=== PATIENT | male | born 1945 | race Caucasian/White ===

== ENCOUNTER 2019-03-30 13:31 | Emergency (ER) | payer MEDICARE ==
[~2019-03-30] VITALS: Ht 188 cm; Wt 111.6 kg
[2019-03-30 14:40] LABS: BASOPHILS % (AUTO) 0.8 % (0-1); EOSINOPHILS # (AUTO) 0.1 X10'3 (0-0.9); EOSINOPHILS % (AUTO) 2.2 % (0-6); HEMATOCRIT 34.5 % (42.0-52.0); HEMOGLOBIN 11.4 g/dl (14.0-17.9); LYMPHOCYTES # (AUTO) 0.9 X10'3 (1.1-4.8); LYMPHOCYTES % (AUTO) 18.6 % (21-51); MEAN CORPUSCULAR VOLUME 90.9 FL (78-98); MEAN PLATELET VOLUME 6.7 FL (7.4-10.4); MONOCYTES # (AUTO) 0.6 X10'3 (0-0.9); MONOCYTES % (AUTO) 11.7 % (2-12); NEUTROPHILS # (AUTO) 3.4 X10'3 (1.8-7.7); NEUTROPHILS % (AUTO) 66.7 % (42-75); PLATELET COUNT 201 X10'3 (140-440); RED CELL DISTRIBUTION WIDTH 14.7 % (11.5-14.5); WHITE BLOOD COUNT 5.1 X10'3 (4.5-11.0)
[2019-03-30 14:55] LABS: ALANINE AMINOTRANSFERASE 32 U/L (12-78); ALBUMIN 4.1 G/DL (3.4-5.0); ALBUMIN/GLOBULIN RATIO 1.1 (1.1-1.5); ALKALINE PHOSPHATASE 69 IU/L (46-116); ANION GAP 9 (8-16); ASPARTATE AMINO TRANSFERASE 26 U/L (10-37); BILIRUBIN,TOTAL 0.5 MG/DL (0.1-1.0); BLOOD UREA NITROGEN 20 MG/DL (7-18); CHLORIDE 106 MMOL/L (99-107); GLUCOSE 81 MG/DL (70-104); POTASSIUM 4.2 MMOL/L (3.5-5.1); SODIUM 141 MMOL/L (135-145); TOTAL PROTEIN 7.8 G/DL (6.4-8.2); eGFR 73 ML/MIN
[2019-03-30] MEDS ORDERED: ISOS60TA4 PO (16:25)
--- NOTE | 2019-03-30 16:39 | NUR ---
RELIEVING RN FOR BREAK, PT IS RESTING QUIETLY ON GURNEY, RESP EVEN AND UNLABORED
[2019-03-30 17:35] VITALS: BP 148/67
== END 2019-03-30 17:37 | disposition home or self-care (01) ==
LOC: ER 13:32
DX: R07.89 Other chest pain (principal); I25.10 Atherosclerotic heart disease of native coronary artery without angina pectoris; G89.29 Other chronic pain; Z98.890 Other specified postprocedural states; Z95.5 Presence of coronary angioplasty implant and graft; Z88.1 Allergy status to other antibiotic agents; Z79.899 Other long term (current) drug therapy
CPT/HCPCS: 36415; 71045; 80053; 84484; 85025; 93005; 99284

== ENCOUNTER 2019-06-11 10:27 | Day surgery (SDC) | payer MEDICARE, BC ==
[~2019-06-11] VITALS: Ht 188 cm; Wt 112.2 kg
[2019-06-11] VITALS (9 sets, daily range): BP systolic 119–156; BP diastolic 71–92
[2019-06-11] MEDS ORDERED: normal saline 1,000 ML IV SCH (10:50)
[2019-06-11] MEDS ORDERED: diphenhydrAMINE 25mg capsule PO PRN (10:50)
[2019-06-11] MEDS ORDERED: AMLO10TA4 PO (11:37)
[2019-06-11] MEDS ORDERED: METF-436 PO (11:37)
[2019-06-11] MEDS ORDERED: NAPR220T67 PO (11:37)
[2019-06-11] MEDS ORDERED: ATOR40TA PO (11:37)
[2019-06-11] MEDS ORDERED: FLEC100T2 PO (11:37)
[2019-06-11] MEDS ORDERED: FLO0.4C PO (11:37)
[2019-06-11] MEDS ORDERED: ISOS60TA4 PO (11:37)
[2019-06-11] MEDS ORDERED: ASPI81TA52 PO (11:37)
[2019-06-11] MEDS ORDERED: PANT-47 PO (11:37)
[2019-06-11 11:47] LABS: ALBUMIN 4.2 G/DL (3.4-5.0); ANION GAP 7 (8-16); BLOOD UREA NITROGEN 20 MG/DL (7-18); BUN/CREATININE RATIO 19.2 (5.4-32.0); CALCIUM 8.9 MG/DL (8.5-10.1); CHLORIDE 108 MMOL/L (99-107); CREATININE 1.04 MG/DL (0.60-1.10); GLUCOSE 106 MG/DL (70-104); MAGNESIUM 2.1 MG/DL (1.5-2.4); POTASSIUM 4.3 MMOL/L (3.5-5.1); SODIUM 141 MMOL/L (135-145); TOTAL CARBON DIOXIDE 26.5 MMOL/L (24-32); eGFR 70 ML/MIN
[2019-06-11 11:49] LABS: BASOPHILS % (AUTO) 0.8 % (0-1); EOSINOPHILS # (AUTO) 0.1 X10'3 (0-0.9); EOSINOPHILS % (AUTO) 1.8 % (0-6); HEMATOCRIT 33.8 % (42.0-52.0); LYMPHOCYTES # (AUTO) 0.8 X10'3 (1.1-4.8); LYMPHOCYTES % (AUTO) 13.4 % (21-51); MEAN CORPUSCULAR HEMOGLOBIN 27.6 PG (27.0-31.0); MEAN CORPUSCULAR HGB CONC 32.5 g/dL (33.0-36.5); MEAN CORPUSCULAR VOLUME 84.8 FL (78-98); MEAN PLATELET VOLUME 7.1 FL (7.4-10.4); MONOCYTES # (AUTO) 0.5 X10'3 (0-0.9); MONOCYTES % (AUTO) 8.8 % (2-12); NEUTROPHILS # (AUTO) 4.2 X10'3 (1.8-7.7); NEUTROPHILS % (AUTO) 75.2 % (42-75); PLATELET COUNT 200 X10'3 (140-440); RED BLOOD COUNT 3.98 X10'6 (4.70-6.10); RED CELL DISTRIBUTION WIDTH 15.8 % (11.5-14.5); WHITE BLOOD COUNT 5.6 X10'3 (4.5-11.0)
[2019-06-11] MEDS ORDERED: FLU VACC QS 2019-20 (6 MOS UP) 60 MCG/0.5 ML VIAL IMVAC ONE (12:35)
[2019-06-11] MEDS ORDERED: midazolam 2 mg/2 ml injection ONE ×2 (12:56→13:29)
[2019-06-11] MEDS ORDERED: fentaNYL/PF 50MCG/1 ML 2ML syringe ONE (12:56)
[2019-06-11] MEDS ORDERED: heparin 1,000 UNITS/NS 500ml 500 ML ONE (12:56)
[2019-06-11] MEDS ORDERED: iohexol 350MG/ML 100ml bottle IV ONE ×2 (12:56→14:08)
[2019-06-11] MEDS ORDERED: iohexol 350 MG/ML 50ML vial IV ONE ×2 (12:56→14:31)
[2019-06-11] MEDS ORDERED: LIDOcaine 1% (10mg/ml)w/preservative injection 20ml MDV ONE (12:56)
[2019-06-11] MEDS ORDERED: heparin 1,000unit/ml 10ml vial 10 ML ONE (14:08)
[2019-06-11] MEDS ORDERED: clopidogrel 300mg tablet ONE (14:43)
[2019-06-11] MEDS ORDERED: normal saline 1000ml 1,000 ML IV SCH (15:20)
[2019-06-11] MEDS ORDERED: HYDROcodone/acetaminophen 10/325mg tab PO PRN (15:20)
[2019-06-11] MEDS ORDERED: HYDROcodone/acetaminophen 5mg/325mg tablet PO PRN (15:20)
[2019-06-11] MEDS ORDERED: OXAZEpam 15mg capsule PO PRN (15:20)
[2019-06-11] MEDS ORDERED: ketorolac tromethamine 15mg/ml inj. IV ONE (15:40)
== END 2019-06-11 18:15 | disposition home or self-care (01) ==
LOC: SSTAY O 10:27
PROVIDERS: ATTEND Internal Medicine Cardiovascular Disease
DX: I25.119 Atherosclerotic heart disease of native coronary artery with unspecified angina pectoris (principal); K21.9 Gastro-esophageal reflux disease without esophagitis; I48.0 Paroxysmal atrial fibrillation; I10 Essential (primary) hypertension; E78.2 Mixed hyperlipidemia; G89.29 Other chronic pain; Z95.5 Presence of coronary angioplasty implant and graft; Z98.890 Other specified postprocedural states
CPT/HCPCS: 36415; 80048; 83735; 85025; 85610; 93458; 99152; 99153; C1725; C1769; C1874; C1894; C9600; C9601; J1644; J1885; J2001; J2250; J3010; J7030; Q0163; Q9967; 93005; A4620; A6258; C1760; Q2037

== ENCOUNTER 2020-07-24 13:01 | Outpatient (CLI) | payer SELFPAY ==
[~2020-07-24 13:01] MED LIST: AMLO10TA4 PO; ASPI81TA52 PO; ATOR40TA PO; FLEC100T2 PO; FLO0.4C PO; ISOS60TA71 PO; METF-436 PO; NAPR220T67 PO; PANT-47 PO
== END 2020-07-24 23:59 | disposition home or self-care (01) ==
LOC: HW VAS 13:01
DX: Z13.6 Encounter for screening for cardiovascular disorders (principal)

== ENCOUNTER 2020-12-22 08:17 | Day surgery (SDC) | payer MEDICARE, BC ==
[~2020-12-22] VITALS: Ht 188 cm; Wt 113.2 kg
[2020-12-22] VITALS (9 sets, daily range): BP systolic 109–157; BP diastolic 68–81
[2020-12-22] MEDS ORDERED: diphenhydrAMINE 25mg capsule PO PRN (08:50)
[2020-12-22] MEDS ORDERED: normal saline 1,000 ML IV SCH (08:50)
[2020-12-22] MEDS ORDERED: PANT20TA18 PO (09:33)
[2020-12-22] MEDS ORDERED: ATOR20TA PO (09:33)
[2020-12-22] MEDS ORDERED: CLOP75TA15 PO (09:33)
[2020-12-22] MEDS ORDERED: BISO1TAB PO (09:33)
[2020-12-22] MEDS ORDERED: LACT1CAP65 PO (09:33)
[2020-12-22 09:35] LABS: BASOPHILS % (AUTO) 0.5 % (0-1); EOSINOPHILS # (AUTO) 0.1 X10'3 (0-0.9); EOSINOPHILS % (AUTO) 1.5 % (0-6); HEMATOCRIT 40.1 % (42.0-52.0); HEMOGLOBIN 13.6 g/dl (14.0-17.9); LYMPHOCYTES % (AUTO) 15.8 % (21-51); MEAN CORPUSCULAR HGB CONC 33.8 g/dL (33.0-36.5); MEAN CORPUSCULAR VOLUME 97.5 FL (78-98); MEAN PLATELET VOLUME 7.3 FL (7.4-10.4); MONOCYTES # (AUTO) 0.6 X10'3 (0-0.9); MONOCYTES % (AUTO) 10.1 % (2-12); NEUTROPHILS # (AUTO) 4.6 X10'3 (1.8-7.7); NEUTROPHILS % (AUTO) 72.1 % (42-75); PLATELET COUNT 176 X10'3 (140-440); RED BLOOD COUNT 4.11 X10'6 (4.70-6.10); RED CELL DISTRIBUTION WIDTH 14.3 % (11.5-14.5); WHITE BLOOD COUNT 6.4 X10'3 (4.5-11.0)
[2020-12-22 09:44] LABS: ALBUMIN 4.3 G/DL (3.4-5.0); ANION GAP 11 (8-16); BLOOD UREA NITROGEN 23 MG/DL (7-18); BUN/CREATININE RATIO 20.9 (5.4-32.0); CHLORIDE 109 MMOL/L (99-107); GLUCOSE 126 MG/DL (70-104); MAGNESIUM 2.2 MG/DL (1.5-2.4); POTASSIUM 4.3 MMOL/L (3.5-5.1); SODIUM 145 MMOL/L (135-145); TOTAL CARBON DIOXIDE 25.4 MMOL/L (24-32); eGFR 65 ML/MIN
[2020-12-22] MEDS ORDERED: verapamil 2.5 mg/ml inj IV ONE (10:13)
[2020-12-22] MEDS ORDERED: nitroGLYCERIN-Tridil 50MG/D5W 250 ML IV ONE (10:13)
[2020-12-22] MEDS ORDERED: fentaNYL/PF 50MCG/1 ML 2ML syringe ONE (10:13)
[2020-12-22] MEDS ORDERED: midazolam 1 mg/ML 2ml injection ONE (10:13)
[2020-12-22] MEDS ORDERED: iohexol 350MG/ML 100ml bottle IV ONE (10:14)
[2020-12-22] MEDS ORDERED: LIDOcaine 1% (10mg/ml)w/preservative injection 20ml MDV ONE (10:14)
[2020-12-22] MEDS ORDERED: heparin 1,000unit/ml 10ml vial 10 ML ONE (10:14)
[2020-12-22] MEDS ORDERED: iohexol 350 MG/ML 50ML vial IV ONE (10:14)
[2020-12-22] MEDS ORDERED: nitroGLYCERIN 0.4mg SUBLingual tab SL ONE (11:09)
[2020-12-22] MEDS ORDERED: acetaminophen 325mg tablet PO PRN (11:40)
[2020-12-22] MEDS ORDERED: HYDROcodone/acetaminophen 5mg/325mg tablet PO PRN (11:40)
[2020-12-22] MEDS ORDERED: proCHLORperazine 10 MG/2 ml inj IV PRN (11:40)
[2020-12-22] MEDS ORDERED: HYDROcodone/acetaminophen 10/325mg tab PO PRN (11:40)
[2020-12-22] MEDS ORDERED: nitroGLYCERIN 0.4mg SUBLingual tab SL PRN (11:40)
[2020-12-22] MEDS ORDERED: ondansetron/PF 4mg/2ml inj IV PRN (11:40)
--- NOTE | 2020-12-22 14:33 | NUR ---
Patient was about to leave, Abena VAZQUEZ from preop came in with written orders from Dr. mathew for preop tests to be done in room prior to bypass surgery.
[2020-12-22 15:42] LABS: HEMOGLOBIN A1C 6.3 % (4.5-6.2)
[2020-12-22 16:47] LABS: CLARITY,URINE SLIGHTLY CLOUDY (Clear); COLOR,URINE YELLOW (Yellow); GLUCOSE, URINE NEGATIVE (Neg); KETONES,URINE NEGATIVE (Neg); LEUKOCYTE ESTERASE ,URINE NEGATIVE (Neg); NITRITES, URINE NEGATIVE (Neg); OCCULT BLOOD,URINE NEGATIVE (Neg); PH,URINE 5.5 (4.8-8.0); PROTEIN,URINE NEGATIVE (Neg); UROBILINOGEN,URINE 0.2 E.U/dL (0.2-1.0)
[2020-12-22 16:54] LABS: UA COLLECTION TYPE NON-SPECIFIED
[2020-12-22 16:58] LABS: HYALINE CASTS 0-3 /LPF (NEGATIVE); MUCUS STRANDS FEW /LPF (Neg); SPERM FEW /HPF (NEGATIVE); SQUAMOUS EPITHELIAL CELL,UR FEW /LPF (FEW); TRANSITIONAL EPI CELLS,URINE FEW /HPF
[2020-12-22 16:59] LABS: BACTERIA,URINE NONE SEEN /HPF (Neg); RBC,URINE NONE SEEN /HPF (0-2); WBC,URINE 0-4 /HPF (0-4)
== END 2020-12-22 16:50 | disposition home or self-care (01) ==
LOC: SSTAY O 08:17
PROVIDERS: ATTEND Internal Medicine Cardiovascular Disease
DX: R06.09 Other forms of dyspnea (principal); I25.110 Atherosclerotic heart disease of native coronary artery with unstable angina pectoris; T82.855A Stenosis of coronary artery stent, initial encounter; K21.9 Gastro-esophageal reflux disease without esophagitis; N40.0 Benign prostatic hyperplasia without lower urinary tract symptoms; I48.0 Paroxysmal atrial fibrillation; E78.2 Mixed hyperlipidemia; I10 Essential (primary) hypertension; G89.29 Other chronic pain; Z98.890 Other specified postprocedural states; Z79.01 Long term (current) use of anticoagulants; Z79.899 Other long term (current) drug therapy; Z88.8 Allergy status to other drugs, medicaments and biological substances; Z87.891 Personal history of nicotine dependence; Y83.8 Other surgical procedures as the cause of abnormal reaction of the patient, or of later complication, without mention of misadventure at the time of the procedure; Y92.89 Other specified places as the place of occurrence of the external cause
CPT/HCPCS: 36415; 80048; 81001; 83036; 83735; 85025; 85610; 93005; 93458; 93880; 93971; 99152; C1760; C1894; J1644; J2001; J2250; J3010; J7030; Q0163; Q9967; 99153; A4620; A6258; J3490

== ENCOUNTER 2023-05-22 16:04 | Emergency (ER) | payer MEDICARE ==
[~2023-05-22] VITALS: Ht 188 cm; Wt 107.0 kg
[~2023-05-22 16:04] MED LIST changes: -AMLO10TA4 PO; +ASPI-1265 PO; -ASPI81TA52 PO; -ATOR40TA PO; +ATOR40TA72 PO; +BIFI4CAP PO; +CHOL200052 PO; -FLO0.4C PO; +IBUP-2803 PO; -ISOS60TA71 PO; +MAGN100T6 PO; -METF-436 PO; -NAPR220T67 PO; -PANT-47 PO; +PANT20TA18 PO
[2023-05-22 16:30] LABS: BASOPHILS % (AUTO) 0.3 % (0-1); EOSINOPHILS # (AUTO) 0.1 X10'3 (0-0.9); EOSINOPHILS % (AUTO) 0.8 % (0-6); HEMATOCRIT 40.6 % (42.0-52.0); HEMOGLOBIN 13.6 g/dl (14.0-17.9); LYMPHOCYTES # (AUTO) 0.9 X10'3 (1.1-4.8); LYMPHOCYTES % (AUTO) 7.3 % (21-51); MEAN CORPUSCULAR HEMOGLOBIN 32.6 PG (27.0-31.0); MEAN CORPUSCULAR HGB CONC 33.5 g/dL (33.0-36.5); MEAN CORPUSCULAR VOLUME 97.3 FL (78-98); MEAN PLATELET VOLUME 6.9 FL (7.4-10.4); MONOCYTES # (AUTO) 0.9 X10'3 (0-0.9); NEUTROPHILS # (AUTO) 10.7 X10'3 (1.8-7.7); NEUTROPHILS % (AUTO) 84.6 % (42-75); PLATELET COUNT 147 X10'3 (140-440); RED BLOOD COUNT 4.17 X10'6 (4.70-6.10); RED CELL DISTRIBUTION WIDTH 14.4 % (11.5-14.5); WHITE BLOOD COUNT 12.6 X10'3 (4.5-11.0)
[2023-05-22 16:52] LABS: ALANINE AMINOTRANSFERASE 84 U/L (12-78); ALBUMIN 4.1 G/DL (3.4-5.0); ALBUMIN/GLOBULIN RATIO 1.1 (1.1-1.5); ALKALINE PHOSPHATASE 100 IU/L (46-116); ANION GAP 7 (8-16); ASPARTATE AMINO TRANSFERASE 61 U/L (10-37); BILIRUBIN,TOTAL 0.7 MG/DL (0.1-1.0); BLOOD UREA NITROGEN 21 MG/DL (7-18); BUN/CREATININE RATIO 19.8 (10.0-20.0); CALCIUM 9.6 MG/DL (8.5-10.1); CHLORIDE 103 MMOL/L (99-107); CREATININE 1.06 MG/DL (0.60-1.10); GLUCOSE 146 MG/DL (70-104); POTASSIUM 4.3 MMOL/L (3.5-5.1); PRO BRAIN NATRIURETIC PEPTIDE 126 PG/ML (0-450); SODIUM 139 MMOL/L (135-145); TOTAL CARBON DIOXIDE 28.9 MMOL/L (24-32); TOTAL PROTEIN 7.9 G/DL (6.4-8.2); eCRCL 68 ML/MIN; eGFR 68 ML/MIN
[2023-05-22] MEDS ORDERED: AMOX-115 PO (21:59)
[2023-05-22] MEDS ORDERED: AZIT250T83 PO (21:59)
[2023-05-22] MEDS ORDERED: ondansetron 4mg rapidly disintigrating tab PO ONE (22:00)
[2023-05-22] MEDS ORDERED: azithromycin 250mg tablet PO ONE (22:00)
[2023-05-22] MEDS ORDERED: amox tr/potassium clavulanate 500mg/125mg TAB PO SCH (22:15)
[2023-05-22] MEDS ORDERED: amox tr/potassium clavulanate 500mg/125mg TAB PO ONE (22:15)
[2023-05-22 22:27] VITALS: BP 139/81; PULSE 71; RESP 16; TEMP 98.7; O2SAT 97
[2023-05-23] MEDS ORDERED: amox tr/potassium clavulanate 500mg/125mg TAB PO SCH (08:30)
== END 2023-05-22 22:29 | disposition home or self-care (01) ==
LOC: ER 16:04
DX: J18.9 Pneumonia, unspecified organism (principal); I11.0 Hypertensive heart disease with heart failure; G89.29 Other chronic pain; M54.9 Dorsalgia, unspecified; Z88.1 Allergy status to other antibiotic agents; Z79.899 Other long term (current) drug therapy; Z79.1 Long term (current) use of non-steroidal anti-inflammatories (NSAID); Z79.2 Long term (current) use of antibiotics
CPT/HCPCS: 36415; 71045; 80053; 83880; 84484; 85025; 93005; 99285

== ENCOUNTER 2024-07-13 08:14 | Day surgery (SDC) | payer MEDICARE ==
[2024-07-13] VITALS (9 sets, daily range): BP systolic 145–171; BP diastolic 69–91; PULSE 68–75; RESP 12–16; TEMP 97.8; O2SAT 97–99
[~2024-07-13] VITALS: Ht 188 cm; Wt 104.1 kg
[~2024-07-13 08:14] MED LIST changes: -BIFI4CAP PO; +BIFI4CAP2 PO
[2024-07-13] MEDS: sodium bicarbonate 1meq/ml syr 150 ML in dextrose 5%-water 1,000 ML IV ONE (09:41)
[2024-07-13] MEDS ORDERED: ROSU40TA89 PO (09:42)
[2024-07-13] MEDS: diphenhydrAMINE 25mg capsule PO PRN (09:42)
[2024-07-13] MEDS: normal saline 1,000 ML IV SCH (09:42)
[2024-07-13] MEDS ORDERED: NITR0.3T10 (09:45)
[2024-07-13] MEDS ORDERED: LIDOcaine 1% 30ml preserv. free vial ONE (10:04)
[2024-07-13] MEDS ORDERED: iohexol 350 MG/ML 50ML vial IV ONE (10:04)
[2024-07-13] MEDS ORDERED: heparin 1,000unit/ml 10ml vial 10 ML ONE (10:04)
[2024-07-13] MEDS ORDERED: iohexol 350MG/ML 100ml bottle IV ONE ×3 (10:04→11:36)
[2024-07-13 10:07] LABS: ANION GAP 6 (8-16); CHLORIDE 110 MMOL/L (99-107); GLUCOSE 124 MG/DL (70-104); SODIUM 145 MMOL/L (135-145); TOTAL CARBON DIOXIDE 29.1 MMOL/L (24-32)
[2024-07-13 10:08] LABS: BLOOD UREA NITROGEN 15 MG/DL (7-18); BUN/CREATININE RATIO 19.2 (10.0-20.0); CALCIUM 9.1 MG/DL (8.5-10.1); CREATININE 0.78 MG/DL (0.60-1.10); eCRCL 91 ML/MIN; eGFR > 90 ML/MIN
[2024-07-13 10:09] LABS: BASOPHILS % (AUTO) 0.7 % (0-1); EOSINOPHILS # (AUTO) 0.1 X10'3 (0-0.9); EOSINOPHILS % (AUTO) 2.6 % (0-6); HEMATOCRIT 38.3 % (42.0-52.0); HEMOGLOBIN 12.6 g/dl (14.0-17.9); LYMPHOCYTES # (AUTO) 1.1 X10'3 (1.1-4.8); LYMPHOCYTES % (AUTO) 22.4 % (21-51); MEAN CORPUSCULAR HEMOGLOBIN 31.9 PG (27.0-31.0); MEAN CORPUSCULAR VOLUME 96.6 FL (78-98); MEAN PLATELET VOLUME 7.6 FL (7.4-10.4); MONOCYTES # (AUTO) 0.5 X10'3 (0-0.9); MONOCYTES % (AUTO) 9.6 % (2-12); NEUTROPHILS % (AUTO) 64.7 % (42-75); PLATELET COUNT 136 X10'3 (140-440); RED BLOOD COUNT 3.96 X10'6 (4.70-6.10); RED CELL DISTRIBUTION WIDTH 14.1 % (11.5-14.5); WHITE BLOOD COUNT 4.7 X10'3 (4.5-11.0)
[2024-07-13] MEDS ORDERED: SILD50TA53 PO (10:09)
[2024-07-13] MEDS ORDERED: CHOL500061 PO (10:09)
[2024-07-13] MEDS ORDERED: METF-1203 PO (10:09)
[2024-07-13] MEDS ORDERED: CA C1TAB91 PO (10:09)
[2024-07-13] MEDS ORDERED: RIVA1PAT11 (10:09)
[2024-07-13] MEDS ORDERED: FLUT16SP26 BOTHNARES (10:09)
[2024-07-13] MEDS ORDERED: EZET10TA48 PO (10:11)
[2024-07-13] MEDS ORDERED: CELE-127 PO (10:11)
[2024-07-13 10:32] LABS: INR 1.1 INR; PROTHROMBIN TIME 11.7 SECONDS (9.0-12.0)
[2024-07-13] MEDS ORDERED: midazolam 1 mg/ML 2ml injection ONE ×2 (10:42)
[2024-07-13] MEDS ORDERED: fentaNYL/PF 50MCG/1 ML 2ML syringe ONE (10:43)
[2024-07-13] MEDS ORDERED: nitroGLYCERIN 500mcg/5mL D5W 5 ML IV ONE (11:04)
[2024-07-13] MEDS ORDERED: hydrALAZINE 20mg/ml inj. ONE (11:34)
[2024-07-13] MEDS ORDERED: ticagrelor 90mg tablet ONE (12:12)
[2024-07-13] MEDS ORDERED: ondansetron/PF 4mg/2ml inj IV PRN (12:55)
[2024-07-13] MEDS ORDERED: HYDROcodone/acetaminophen 10/325mg tab PO PRN (12:55)
[2024-07-13] MEDS ORDERED: proCHLORperazine 10 MG/2 ml inj IV PRN (12:55)
[2024-07-13] MEDS ORDERED: HYDROcodone/acetaminophen 5mg/325mg tablet PO PRN (12:55)
[2024-07-13] MEDS ORDERED: TICA90TA2 PO (13:03)
== END 2024-07-13 16:05 | disposition home or self-care (01) ==
LOC: SSTAY O 08:14
PROVIDERS: ATTEND Internal Medicine Cardiovascular Disease
DX: I25.10 Atherosclerotic heart disease of native coronary artery without angina pectoris (principal); K21.9 Gastro-esophageal reflux disease without esophagitis; I10 Essential (primary) hypertension; I48.0 Paroxysmal atrial fibrillation; E78.2 Mixed hyperlipidemia; G31.83 Neurocognitive disorder with Lewy bodies; F02.80 Dementia in other diseases classified elsewhere, unspecified severity, without behavioral disturbance, psychotic disturbance, mood disturbance, and anxiety; Z95.5 Presence of coronary angioplasty implant and graft; Z88.8 Allergy status to other drugs, medicaments and biological substances
CPT/HCPCS: 36415; 80048; 82948; 83735; 85025; 85610; 93005; 93459; 99152; 99153; A6258; C1725; C1751; C1760; C1769; C1874; C1894; C9600; J0360; J1644; J2003; J2250; J3010; J3490; J7030; J7070; Q0163; Q9967; Z7610; A4314; C1758